=== PATIENT | female | born 1940 | race Caucasian/White ===

== ENCOUNTER 2017-06-24 18:51 | Observation (INO) | payer OTHER, BC ==
[~2017-06-24] VITALS: Ht 165.1 cm; Wt 91.4 kg
[~2017-06-24 18:51] MED LIST: CELEBREX200 MG PO; COUMADIN,JANTO1.5 MG PO; CYMBALTA30 MG PO; Calcium Carbonate,Ca PO; Coumadin,Jantoven PO; Cymbalta PO; Ecotrin PO; Feosol PO; Ginkgo Biloba PO; IRON325 M1 PO; LOVENOX80 MG/0.8 SC; OYST-CAL D, OS500 M1 PO; Osteo-Biflex,Flex-A- PO; PYRIDOXINE,VIT100 MG PO; SENOKOT S,PE1 TABLET PO; Senokot S,Pericolace PO; Vicodin,Norco 5/325 PO; ZESTORETIC 20-1 EAC1 PO; ZESTORETIC,P1 TABLE2 PO; ZOCOR40 MG PO; Zestoretic,Prinzide PO; Zocor PO; [UNRECOGNIZED DRUG - OTHER] PO; celeBREX PO
[2017-06-24 20:46] LABS: HEMATOCRIT 35.8 % (36.0-46.0); MCHC 34.1 G/DL (30.0-36.0); MCV 88.2 FL (83-99); MEAN PLAT.VOLUME 9.8 uM^3 (9.5-12.4); PLATELET COUNT 184 K/uL (156-360); RBC DIS.WIDTH-CV 13.3 % (11.8-14.6); RBC DIS.WIDTH-SD 43.4 % (39-53); RED BLOOD COUNT 4.06 M/uL (3.80-5.20); WHITE BLOOD COUNT 6.8 K/uL (4.1-10.2)
[2017-06-24 20:53] LABS: CHLORIDE 104 mEq/L (99-109); POTASSIUM 3.4 mEq/L (3.7-5.4); SODIUM 143 mEq/L (136-147)
[2017-06-24 20:55] LABS: GLUCOSE 112 mg/dL (70-99)
[2017-06-24 20:56] LABS: ANION GAP 12 MEQ/L (2-14)
[2017-06-24 20:59] LABS: GFR ESTIMATE (CALCULATED) > 59 mL/min/
[2017-06-24 21:00] LABS: UREA NITROGEN (BUN) 16 mg/dL (9-23)
[2017-06-24] MEDS ORDERED: LO-DOSE ASPIRIN81 M1 PO (22:05)
[2017-06-24] MEDS ORDERED: BIOTIN5 MG PO (22:05)
[2017-06-25 04:10] VITALS: BP 148/69
[2017-06-25 06:12] LABS: HEMATOCRIT 35.1 % (36.0-46.0); MCH 29.5 PG (29.0-34.0); MCHC 33.9 G/DL (30.0-36.0); MCV 87.1 FL (83-99); MEAN PLAT.VOLUME 10.5 uM^3 (9.5-12.4); PLATELET COUNT 196 K/uL (156-360); RBC DIS.WIDTH-CV 13.4 % (11.8-14.6); RBC DIS.WIDTH-SD 42.7 % (39-53); RED BLOOD COUNT 4.03 M/uL (3.80-5.20); WHITE BLOOD COUNT 3.8 K/uL (4.1-10.2)
[2017-06-25 06:22] LABS: CHLORIDE 104 mEq/L (99-109); POTASSIUM 3.8 mEq/L (3.7-5.4); SODIUM 140 mEq/L (136-147)
[2017-06-25 06:24] LABS: GLUCOSE 151 mg/dL (70-99)
[2017-06-25 06:25] LABS: ANION GAP 10 MEQ/L (2-14)
[2017-06-25 06:28] LABS: GFR ESTIMATE (CALCULATED) > 59 mL/min/; UREA NITROGEN (BUN) 15 mg/dL (9-23)
[2017-06-25 07:57] VITALS: BP 145/65
[2017-06-25 09:07] LABS: BASE EXCESS 3.2 mEq/L (-3 to +3); BICARBONATE 27.9 mEq/L (22-26); CARBOXY HGB 2.1 % (0-5); METHEMOGLOBIN 1.2 % (0-1.5); PCO2 42 mm Hg (35-45); PO2 85 mm Hg (80-100); pH 7.43 (7.35-7.45)
[2017-06-25 09:08] LABS: COMMENTS - BLOOD GASES +C; DEVICE NC; SITE RR +A; TOTAL RESP RATE 16 resp/min
[2017-06-25 09:14] LABS: O2 FLOW 1 L/MIN
[2017-06-25 09:17] LABS: TOTAL BILIRUBIN 0.4 mg/dL (0.0-1.0)
[2017-06-25 09:18] LABS: ALKALINE PHOSPHATASE 82 IU/L (3-129)
[2017-06-25 09:21] LABS: DIRECT BILIRUBIN 0.2 mg/dL (0.0-0.3)
[2017-06-25 12:10] VITALS: BP 144/69
[2017-06-25] MEDS ORDERED: VENTOLIN HFA18 GM IH (12:22)
== END 2017-06-25 14:07 | disposition home or self-care (01) ==
LOC: EME 18:51 → EDOF 22:23 → ENRESERV 22:26 → EDOF 06-25 03:52
PROVIDERS: Emergency Medicine; Internal Medicine; Physician Assistant
DX: T54.3X1A Toxic effect of corrosive alkalis and alkali-like substances, accidental (unintentional), initial encounter (principal); J68.3 Other acute and subacute respiratory conditions due to chemicals, gases, fumes and vapors; R09.02 Hypoxemia; Y92.002 Bathroom of unspecified non-institutional (private) residence as the place of occurrence of the external cause; Y93.E9 Activity, other interior property and clothing maintenance; I10 Essential (primary) hypertension; F17.210 Nicotine dependence, cigarettes, uncomplicated; E78.5 Hyperlipidemia, unspecified; M19.90 Unspecified osteoarthritis, unspecified site; Z86.711 Personal history of pulmonary embolism; Z86.718 Personal history of other venous thrombosis and embolism; Z96.653 Presence of artificial knee joint, bilateral; F32.9 Major depressive disorder, single episode, unspecified; Z71.6 Tobacco abuse counseling; Z79.82 Long term (current) use of aspirin
CPT/HCPCS: 36600; 71020; 80048; 80076; 82803; 85027; 94640; 94640 76; 94799; 99202; 99281; 99284; G0378; J1650; J2930; J3475; J7512; J7644